=== PATIENT | female | born 1950 | race Two or more races ===

== ENCOUNTER 2020-07-29 13:30 | Emergency (ER) | payer OTHER ==
[~2020-07-29] VITALS: Ht 160 cm; Wt 90.7 kg
--- NOTE | 2020-07-29 14:09 | Emergency Room Report ---
History of Present Illness General Chief Complaint: Dyspnea/Respdistress Source: Patient Present Illness HPI Disclaimer: Please note that this report is being documented using DRAGON technology. This can lead to erroneous entry secondary to incorrect interpretation by the dictating instrument. HPI: 70-year-old female history of hypertension presents for evaluation of shortness of breath. The patient developed flulike symptoms 7 days ago and tested positive for COVID-19 by PCR test on 07/26. Daughter provides documentation to confirm a positive result. She reports headaches, low-grade fevers and shortness of breath with exertion. Notes mild cough. Has been using [id number] medications with moderate effect. Was sent over by her PMD for evaluation due to persistent fatigue and shortness of breath symptoms. PMH: Hypertension PSH: Denied Allergies: Penicillin Social Hx: Reviewed Allergies: Coded Allergies: PENICILLINS (Verified Allergy, Unknown, 07/29/20) COVID-19 Screening Contact w/high risk pt: Yes Experienced COVID-19 symptoms?: Yes COVID-19 Testing performed MD PSYCHIATRY: Yes COVID-19 Screening: Positive COVID-19 COVID-19 Testing Source: nasal Nursing Documentation-PMH Past Medical History: No History, Except For Hx Hypertension: Yes Review of Systems All Other Systems: negative except mentioned in HPI Physical Exam Vital Signs Date Time Temp Pulse Resp B/P (MAP) Pulse Ox O2 Delivery O2 Flow Rate FiO2 07/29/20 13:55 98.4 107 22 163/89 (113) 92 Room Air General: Awake and alert, no acute distress HEENT: NC/AT. EOMI. Cardiovascular: Borderline tachycardia Resp: Normal work of breathing. No cough, wheezing or crackles appreciated. 96% room air laying in gurney Abdomen: Abdomen is soft, nondistended. Nontender Skin: Intact. No abrasions, laceration or rash over the exposed skin MSK: Normal tone and bulk. Moving all extremities. No obvious deformity. Neuro: Awake and alert. Mentating appropriately. Medical Decision Making Diagnostic Impression: Primary Impression: COVID-19 ER Course This a 70-year-old female presenting for evaluation of shortness of breath. Tested positive for COVID-19 by PCR test on 07/26 - documentation reviewed. Patient is stable. Currently saturating 96% unlabored breathing. Chest x-ray unremarkable, no infiltrate identified. Patient meets criteria for monoclonal antibody infusion. Provided with Bamlanivimab infusion drug fact sheet for patients who are considering receiving IV infusion. Patient understands and is aware that this medication is authorized for emergency use by the FDA and is still undergoing full testing. Understands monitoring necessary following infusion. Patient understands that this medication is intended to reduce symptoms and prevent hospitalization however the patient may require further testing, interventions and even hospitalization if symptoms worsen. Patient understands this is not a cure for COVID-19 infection. Addressed all patient questions. They have consented to receive monoclonal antibody infusion and for monitoring 1 hour post infusion for anaphylactic reaction. Infusion was administered via IV over the duration of 1 hour. The patient was monitored and observed for any reactions to infusion that require acute medical intervention. The patient did not have any significant reactions during the 1 hour observation period following infusion and is stable for discharge and outpatient follow-up with PMD. Instructed to return with new or worsening symptoms. Understand agree with this treatment plan. Chest X-Ray Diagnostic Results Chest X-Ray Diagnostic Results : Chest X-Ray Ordered: Yes # of Views/Limited/Complete: 1 View Indication: Shortness of Breath EP Interpretation: Yes Interpretation: no consolidation, no effusion, no pneumothorax, no acute cardiopulmonary disease Impression: No acute disease Electronically Signed by: Electronically signed by Dr. Jose Claudio MD Last Vital Signs Date Time Temp Pulse Resp B/P (MAP) Pulse Ox O2 Delivery O2 Flow Rate FiO2 07/29/20 13:55 98.4 107 22 163/89 (113) 92 Room Air Disposition: HOME, SELF-CARE Condition: Stable Jose Claudio MD Jul 29, 2020 14:09
[2020-07-29] MEDS ORDERED: Acetaminophen 500mg (ES) tab ORAL ONE (14:15)
[2020-07-29] MEDS ORDERED: Bamlanivimab 700 MG in NS 275 ML IVPB SCH (14:15)
[2020-07-29] MEDS ORDERED: Bamlanivimab Fact Sheet MISC ONE (14:15)
[2020-07-29 14:38] VITALS: BP 163/89
--- NOTE | 2020-07-29 15:58 | Diagnostic Imaging Report ---
Indication: Shortness of breath Technique: One view of the chest Comparison: none Findings: Lungs and pleural spaces are clear. Heart size is normal. Impression: No acute process
--- NOTE | 2020-07-29 16:00 | NUR ---
ED Nurse Note:started iv infusion
[2020-07-29 16:38] VITALS: BP 124/56
[2020-07-29 17:10] VITALS: BP 124/56
--- NOTE | 2020-07-29 17:10 | NUR ---
ER DISCHARGE NOTE: Patient is cleared to be discharged per ERMD, pt is aox4, on room air, with stable vital signs. pt was given dc instructions, pt was able to verbalize understanding, pt id band and iv site removed without complications. pt is able to ambulate with steady gait. pt took all belongings.
== END 2020-07-29 17:10 | disposition home or self-care (01) ==
LOC: EMR 14:44
DX: U07.1 COVID-19 (principal); R06.02 Shortness of breath; R51.9 Headache, unspecified; R50.9 Fever, unspecified; R05 Cough; I10 Essential (primary) hypertension; Z23 Encounter for immunization; Z88.0 Allergy status to penicillin
CPT/HCPCS: 71045; 96361; 96365; 99284; J7030; J7050; Q0239